=== PATIENT | female | born 2000 | race Caucasian/White ===

== ENCOUNTER 2019-06-11 13:17 | Emergency (ER) | payer BC ==
[~2019-06-11] VITALS: Ht 170.2 cm; Wt 79.2 kg
[2019-06-11 19:08] VITALS: BP 133/78
== END 2019-06-11 19:10 | disposition home or self-care (01) ==
LOC: ED 17:55
DX: R55 Syncope and collapse (principal); R51 Headache; R29.2 Abnormal reflex
CPT/HCPCS: 36415; 70450; 80048; 81001; 81025; 85025; 93005; 99284